=== PATIENT | female | born 1965 | race Caucasian/White ===

== ENCOUNTER 2017-06-26 09:44 | Emergency (ER) | payer BC ==
[2017-06-26] MEDS: HYDROCODONE/APAP (5/325) TAB PO (14:27)
== END 2017-06-26 15:59 | disposition home or self-care (01) ==
LOC: FTE 09:44
DX: M25.511 Pain in right shoulder (principal); R07.9 Chest pain, unspecified
CPT/HCPCS: 73030; 73030-RT; 93005; 99284-25